=== PATIENT | female | born 1975 | race Caucasian/White ===

== ENCOUNTER 2019-12-22 21:01 | Emergency (ER) | payer MEDICAID, OTHER ==
[~2019-12-22] VITALS: Ht 149.9 cm; Wt 86.3 kg
[2019-12-22] MEDS ORDERED: IBUPROFEN 600MG TABLET PO STA (22:14)
[2019-12-22 22:54] LABS: BASOPHILS % 1.1 % (0.0-2.0); EOSINOPHILS % 3.5 % (0.0-5.0); HEMATOCRIT. 42.4 % (36.0-48.0); HEMOGLOBIN. 14.5 g/dL (12.0-16.0); LYMPHOCYTES % 28.3 % (20.0-50.0); MEAN CORPUSCULAR HEMOGLOBIN 31.3 pg (28.0-32.0); MEAN CORPUSCULAR VOLUME 91.7 fL (81.0-99.0); MEAN PLATELET VOLUME 7.8 fl (7.4-10.4); NEUTROPHILS % 59.1 % (40.0-76.0); PLATELET 251 x1000/uL (130-400); RED BLOOD CELL COUNT 4.63 mill/uL (4.2-5.4); RED CELL DISTRIBUTION WIDTH 13.1 % (11.6-14.6)
[2019-12-22 22:59] LABS: CHLORIDE 108 mEq/L (98-107)
[2019-12-23] VITALS: BP 127/56
== END 2019-12-23 00:17 | disposition home or self-care (01) ==
LOC: ER 21:01
DX: R07.89 Other chest pain (principal); Z98.890 Other specified postprocedural states
CPT/HCPCS: 36415; 71045; 80053; 81025; 84484; 85025; 93005; 99285

== ENCOUNTER 2021-08-13 04:08 | Emergency (ER) | payer BC ==
[~2021-08-13] VITALS: Ht 149.9 cm; Wt 90.0 kg
[2021-08-13 04:18] VITALS: BP 120/76
[2021-08-13] MEDS ORDERED: DICYCLOMINE 10 MG/5 ML ORAL SYR PO STA (05:20)
[2021-08-13] MEDS ORDERED: MAGNESIUM/ALUMINUM HYDROXIDE/SIMETHICONE 30ML UDC PO STA (05:20)
[2021-08-13 05:37] LABS: CLARITY URINE CLEAR (CLEAR); COLOR URINE YELLOW (YELLOW); KETONES URINE TRACE (NEGATIVE); LEUKOCYTE ESTERASE URINE NEGATIVE (NEGATIVE); NITRITE URINE NEGATIVE (NEGATIVE); OCCULT BLOOD URINE NEGATIVE (NEGATIVE); PH URINE 5.5 (4.5-8.0); PROTEIN URINE NEGATIVE (NEGATIVE); SPECIFIC GRAVITY URINE 1.029 (1.005-1.030); UROBILINOGEN URINE 0.2 E.U./dL (0.2-1.0)
[2021-08-13 05:40] LABS: HEMATOCRIT. 46.1 % (36.0-48.0); HEMOGLOBIN. 15.9 g/dL (12.0-16.0); MEAN CORPUSCULAR HEMOGLOBIN 30.9 pg (28.0-32.0); MEAN CORPUSCULAR VOLUME 89.9 fL (81.0-99.0); MEAN PLATELET VOLUME 7.4 fl (7.4-10.4); PLATELET 296 x1000/uL (130-400); RED BLOOD CELL COUNT 5.12 mill/uL (4.2-5.4); RED CELL DISTRIBUTION WIDTH 13.1 % (11.6-14.6)
[2021-08-13 05:44] LABS: CHLORIDE 110 mEq/L (98-107)
[2021-08-13] MEDS ORDERED: OMEP40CA20 MT (06:28)
[2021-08-13 07:24] LABS: PLATELET ESTIMATE NORMAL
== END 2021-08-13 06:39 | disposition home or self-care (01) ==
LOC: ER 04:08
DX: R10.13 Epigastric pain (principal); Z98.890 Other specified postprocedural states
CPT/HCPCS: 36415; 71045; 80053; 81003; 81025; 85025; 93005; 99285